=== PATIENT | male | born 1960 | race Caucasian/White ===

== ENCOUNTER 2019-05-21 18:56 | Emergency (ER) | payer OTHER ==
[~2019-05-21] VITALS: Ht 187 cm; Wt 111.0 kg
--- NOTE | 2019-05-21 19:33 | Diagnostic Imaging Report ---
INDICATION: Bilateral hip pain 6 views of the pelvis and bilateral hips were obtained. There are changes of prior bilateral total hip arthroplasties. No loosening is evident on either side. There are changes of prior fixation involving the inferior ramus on the left. There are also changes of prior laminectomy and fusion at L5-S1. There is no fracture, dislocation or other acute abnormality. IMPRESSION: Multiple prior surgeries. No acute abnormality is evident. Dictated by: Dictated on workstation # [id number]
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
[2019-05-21 20:14] VITALS: BP 134/100
== END 2019-05-21 20:15 | disposition home or self-care (01) ==
LOC: ER FS 18:59
DX: F10.129 Alcohol abuse with intoxication, unspecified (principal)
CPT/HCPCS: 73521

== ENCOUNTER 2020-05-28 21:45 | Observation (INO) | payer MEDICARE, OTHER ==
[~2020-05-28] VITALS: Ht 187.9 cm; Wt 116.0 kg
[2020-05-28] MEDS ORDERED: NS IV 1000 ML 1,000 ML IV SCH (22:00)
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
[2020-05-28 22:15] LABS: BASOPHILS # (AUTO) 0.1 10^3/uL (0.0-0.1); BASOPHILS % (AUTO) 1 % (0-10); EOSINOPHILS # (AUTO) 0.6 10^3/uL (0.0-0.3); EOSINOPHILS % (AUTO) 10 % (0-10); HEMATOCRIT 42 % (40-54); HEMOGLOBIN 13.5 g/dL (13.3-17.7); LYMPHOCYTES # (AUTO) 1.2 10^3/uL (1.0-4.0); LYMPHOCYTES % (AUTO) 22 % (12-44); MEAN CORPUSCULAR HEMOGLOBIN 29 pg (25-34); MEAN CORPUSCULAR HGB CONC 32 g/dL (32-36); MEAN CORPUSCULAR VOLUME 90 fL (80-99); MEAN PLATELET VOLUME 9.3 fL (9.0-12.2); MONOCYTES # (AUTO) 0.7 10^3/uL (0.0-1.0); MONOCYTES % (AUTO) 12 % (0-12); NEUTROPHILS % (AUTO) 55 % (42-75); PLATELET COUNT 239 10^3/uL (130-400); WHITE BLOOD COUNT 5.5 10^3/uL (4.3-11.0)
[2020-05-28 22:22] LABS: ALBUMIN 3.8 GM/DL (3.2-4.5); CHLORIDE 103 MMOL/L (98-107); POTASSIUM 4.5 MMOL/L (3.6-5.0); SODIUM 137 MMOL/L (135-145)
[2020-05-28 22:23] LABS: CALCIUM 8.9 MG/DL (8.5-10.1); INR 0.9 (0.8-1.4); PROTHROMBIN TIME PATIENT 12.9 SEC (12.2-14.7)
[2020-05-28 22:24] LABS: TRIGLYCERIDES 362 MG/DL (<150); VLDL CHOLESTEROL 72 MG/DL (5-40)
[2020-05-28 22:25] LABS: GLUCOSE 104 MG/DL (70-105); TOTAL PROTEIN 7.1 GM/DL (6.4-8.2)
[2020-05-28 22:26] LABS: BILIRUBIN,TOTAL 0.4 MG/DL (0.1-1.0); CARBON DIOXIDE 24 MMOL/L (21-32)
[2020-05-28 22:28] LABS: ALKALINE PHOSPHATASE 84 U/L (40-136); GFR ESTIMATED > 60
[2020-05-28 22:29] LABS: CHOLESTEROL 205 MG/DL (< 200)
[2020-05-28 22:30] LABS: BILIRUBIN,DIRECT 0.1 MG/DL (0.0-0.3); BILIRUBIN,INDIRECT 0.3 MG/DL; BUN/CREATININE RATIO 15
[2020-05-28 22:31] LABS: ALANINE AMINOTRANSFERASE 11 U/L (0-55); HDL CHOLESTEROL 34 MG/DL (40-60); MAGNESIUM 2.3 MG/DL (1.6-2.4)
[2020-05-28] MEDS ORDERED: IOHEXOL 350 MG/ML 100 ML (OMNIPAQUE 350) VIAL IV ONE (23:00)
[2020-05-28] MEDS ORDERED: CATHETER FLUSH 10 ML SYR IV PRN (23:00)
[2020-05-28] MEDS ORDERED: NS 100 ML (IVPB) BAG IV ONE (23:00)
[2020-05-28] MEDS ORDERED: HOLD METFORMIN - RECEIVED CONTRAST 20 ML VIAL IV SCH (23:00)
[2020-05-28 23:19] LABS: BASOPHILS # (AUTO) 0.1 10^3/uL (0.0-0.1); BASOPHILS % (AUTO) 1 % (0-10); EOSINOPHILS # (AUTO) 0.6 10^3/uL (0.0-0.3); EOSINOPHILS % (AUTO) 10 % (0-10); HEMATOCRIT 43 % (40-54); HEMOGLOBIN 13.8 g/dL (13.3-17.7); LYMPHOCYTES # (AUTO) 1.2 10^3/uL (1.0-4.0); LYMPHOCYTES % (AUTO) 20 % (12-44); MEAN CORPUSCULAR HEMOGLOBIN 29 pg (25-34); MEAN CORPUSCULAR HGB CONC 32 g/dL (32-36); MEAN CORPUSCULAR VOLUME 90 fL (80-99); MEAN PLATELET VOLUME 9.1 fL (9.0-12.2); MONOCYTES # (AUTO) 0.7 10^3/uL (0.0-1.0); MONOCYTES % (AUTO) 11 % (0-12); NEUTROPHILS # (AUTO) 3.3 10^3/uL (1.8-7.8); NEUTROPHILS % (AUTO) 57 % (42-75); PLATELET COUNT 232 10^3/uL (130-400); WHITE BLOOD COUNT 5.8 10^3/uL (4.3-11.0)
[2020-05-28 23:25] LABS: BILIRUBIN,URINE NEGATIVE (NEGATIVE); CLARITY,URINE CLEAR; COLOR,URINE YELLOW; GLUCOSE, URINE (UA) NEGATIVE (NEGATIVE); KETONES,URINE NEGATIVE (NEGATIVE); LEUKOCYTE ESTERASE ,URINE NEGATIVE (NEGATIVE); NITRITE,URINE NEGATIVE (NEGATIVE); PROTEIN,URINE NEGATIVE (NEGATIVE)
[2020-05-28 23:30] LABS: CHLORIDE 102 MMOL/L (98-107); POTASSIUM 4.5 MMOL/L (3.6-5.0); SODIUM 136 MMOL/L (135-145)
[2020-05-28] MEDS ORDERED: AZITHROMYCIN INJECTION 500 MG in NS (IVPB) 250 ML IV ONE (23:30)
[2020-05-28] MEDS ORDERED: cefTRIAXone FOR IV USE 1,000 MG in WATER (STERILE) FOR INJECTION 10 ML IV ONE (23:30)
[2020-05-28 23:31] LABS: BACTERIA,URINE NEGATIVE /HPF; SQUAMOUS EPITHELIAL CELL,UR RARE /HPF
[2020-05-28 23:31] LABS: ALBUMIN 3.8 GM/DL (3.2-4.5)
[2020-05-28 23:32] LABS: CALCIUM 8.8 MG/DL (8.5-10.1); FIBRIN DEGRADATION PRODUCTS 1.88 UG/ML (0.00-0.49); INR 0.9 (0.8-1.4)
[2020-05-28 23:33] LABS: AMYLASE 105 U/L (25-125); GLUCOSE 95 MG/DL (70-105); TOTAL PROTEIN 6.9 GM/DL (6.4-8.2)
[2020-05-28 23:34] LABS: CARBON DIOXIDE 26 MMOL/L (21-32)
[2020-05-28 23:35] LABS: BILIRUBIN,TOTAL 0.4 MG/DL (0.1-1.0)
[2020-05-28 23:36] LABS: AMPHETAMINE SCREEN, URINE NEGATIVE (NEGATIVE); BARBITURATE SCREEN URINE NEGATIVE (NEGATIVE); BENZODIAZEPINES SCREEN URINE POSITIVE (NEGATIVE); CANNABINOID SCREEN, URINE NEGATIVE (NEGATIVE); COCAINE SCREEN URINE NEGATIVE (NEGATIVE); METHADONE STAT NEGATIVE (NEGATIVE); METHAMPHETAMINE SCREEN URINE S NEGATIVE (NEGATIVE); OPIATE SCREEN URINE NEGATIVE (NEGATIVE); OXYCODONE STAT NEGATIVE (NEGATIVE); PROPOXYPHENE STAT NEGATIVE (NEGATIVE); TRICYCLIC ANTIDEPRESSANTS SCRE POSITIVE (NEGATIVE)
[2020-05-28 23:37] LABS: ALKALINE PHOSPHATASE 85 U/L (40-136); CREATININE SERUM 1.01 MG/DL (0.60-1.30); GFR ESTIMATED > 60
[2020-05-28 23:38] LABS: BUN/CREATININE RATIO 15
[2020-05-28 23:40] LABS: ALANINE AMINOTRANSFERASE 12 U/L (0-55); SALICYLATE < 5.0 MG/DL (5.0-20.0)
[2020-05-28 23:41] LABS: MAGNESIUM 2.3 MG/DL (1.6-2.4)
[2020-05-28 23:42] LABS: CREATINE KINASE 81 U/L (30-200); LIPASE 78 U/L (8-78)
[2020-05-28 23:45] LABS: ACETAMINOPHEN < 10 UG/ML (10-30)
[2020-05-28 23:49] LABS: CREATINE KINASE MB 2.5 NG/ML (<6.6)
[2020-05-29] VITALS (18 sets, daily range): BP systolic 133–181; BP diastolic 83–103
[2020-05-29] MEDS ORDERED: D5 1/2 NS W/KCL 20 MEQ/L 1,000 ML IV ONE (01:32)
[2020-05-29] MEDS ORDERED: ACETAMINOPHEN 500 MG TAB (TYLENOL) PO PRN (02:00)
[2020-05-29] MEDS ORDERED: D5 1/2 NS W/KCL 20 MEQ 1000 ML IV SCH (02:00)
[2020-05-29] MEDS ORDERED: NS IV 1000 ML 1,000 ML ONE (03:16)
[2020-05-29] MEDS ORDERED: RT-ALBUTEROL SULF 2.5 MG/3 ML PRE-MIX VIAL INH PRN (03:30)
[2020-05-29] MEDS ORDERED: BUSP10TA95 PO (04:55)
[2020-05-29] MEDS ORDERED: BUPR1TAB44 SL (04:55)
[2020-05-29] MEDS ORDERED: PARO40TA3 PO (04:55)
[2020-05-29] MEDS ORDERED: ALPR1TAB2 PO (04:55)
[2020-05-29] MEDS ORDERED: GABA300S2 PO (04:55)
[2020-05-29] MEDS ORDERED: DULO60CA59 PO (04:55)
[2020-05-29] MEDS ORDERED: TRZ50T PO (04:55)
[2020-05-29] MEDS ORDERED: QUET100T33 PO (04:55)
[2020-05-29] MEDS ORDERED: CLON0.5T4 PO (04:56)
[2020-05-29] MEDS ORDERED: POTASSIUM CL 10MEQ/50ML IVPB 50 ML IV SCH (06:00)
[2020-05-29] MEDS ORDERED: MAGNESIUM 1 GM/100 ML IVPB 100 ML IV SCH (06:00)
[2020-05-29] MEDS ORDERED: KCL 20 MEQ TAB (K-DUR) PO SCH (06:00)
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
[2020-05-29] MEDS ORDERED: D5 1/2 NS 1000 ML IV SOLUTION 1,000 ML IV SCH ×2 (08:00)
[2020-05-29] MEDS ORDERED: RT-ALBUTEROL SULF 2.5 MG/3 ML PRE-MIX VIAL INH SCH (08:00)
[2020-05-29] MEDS ORDERED: CATHETER FLUSH 10 ML SYR IV PRN (08:15)
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
[2020-05-29] MEDS ORDERED: TMSL.4C PO (14:07)
[2020-05-29] MEDS ORDERED: ALPR1TAB7 PO (14:07)
[2020-05-29] MEDS ORDERED: FINA5TAB6 PO (14:07)
[2020-05-29] MEDS ORDERED: GABA300C PO (14:07)
[2020-05-29] MEDS ORDERED: LISI20TA26 PO (14:07)
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
--- NOTE | 2020-05-29 18:00 | Discharge Inst-Surgical ---
Discharge Inst-Surgical Depart Medication/Instructions New, Converted or Re-Newed RX: Other (None needed for home.) Patient Instructions Follow up Appt: Make appointment with primary care physician Instructions: No lifting greater than 20 pounds. No strenuous activity. May shower in 24 hours, no tub bath or soaking. Use incentive spirometer at home as directed. No Smoking Symptoms to Report: Appetite Changes, Extremity Discoloration, Numbness/Tingling, Swelling Increased, Bleeding Excessive, Eyesight Changes, Pain Increased, Urine Color Change, Constipation(Persistent), Fever over 101 degree F, Pain/Pressure in chest, Urinating Difficulty, Cough Up/Vomit Blood, Heart Beat Irreg/Pounding, Pain/Pressure in jaw, Cramps in feet or legs, Lightheadedness, Pain/Pressure in shoulder, Diarrhea(Persistent), Memory Changes Suddenly, Questions/Concerns, Weight gain consecutive days, Dizziness/Fainting, Nausea/Vomiting, Shortness of Breath, Weight gain over 2 pounds If questions or concerns contact your physician Or seek help at emergency department. Activity Activity as Tolerated: Yes Driving Instructions: No Driving/Refer to Dr. Pritchett Discharge Diet: No Restrictions Diet After 24 Hours: Clear Liquid if Nauseous If Any Problems/Questions/Issu: Contact Your Physician, Go to Emergency Room Skin/Wound Care Infection Signs and Symptoms: Increased Swelling, Temperature Above 101 F Bathing Instructions: BECKY Engle DO May 29, 2020 18:00
[2020-05-29] MEDS ORDERED: WATER (STERILE) FOR INJECTION 10 ML ONE (19:27)
[2020-05-29] MEDS ORDERED: cefTRIAXone 1,000 MG IV (ROCEPHIN) VIAL ONE (19:27)
[2020-05-29] MEDS ORDERED: cefTRIAXone 1,000 MG/SWFI 10 ML IV PUSH IV SCH ×2 (21:00)
[2020-05-29] MEDS ORDERED: AZITHROMYCIN 500 MG/NS 250 ML IVPB IV SCH ×2 (21:00)
== END 2020-05-29 20:12 | disposition home or self-care (01) ==
LOC: EDUNIT# 21:47 → ER 21:49 → ICU 23:50 → 4TH 05-29 15:03 → ICU 05-29 15:03 → UNDODISOB 05-29 20:12
PROVIDERS: ADMIT Surgery; ATTEND Surgery
DX: S22.42XA Multiple fractures of ribs, left side, initial encounter for closed fracture (principal); R41.82 Altered mental status, unspecified; I12.9 Hypertensive chronic kidney disease with stage 1 through stage 4 chronic kidney disease, or unspecified chronic kidney disease; N18.9 Chronic kidney disease, unspecified; G89.29 Other chronic pain; M54.9 Dorsalgia, unspecified; F41.9 Anxiety disorder, unspecified; F32.9 Major depressive disorder, single episode, unspecified; F43.10 Post-traumatic stress disorder, unspecified; Z79.899 Other long term (current) drug therapy; Z20.822 Contact with and (suspected) exposure to COVID-19; V89.2XXA Person injured in unspecified motor-vehicle accident, traffic, initial encounter
CPT/HCPCS: 51702; 70450; 70486; 71045 ×2; 71260; 72125; 72128; 72131; 72170; 74177; 80053; 80061; 80076; 80306; 81000; 82150; 82550; 82553; 83690; 83735; 83874; 84484; 85025; 85379; 85610; 85730; 86850; 86900; 86901; 87081; 93005; 94640; 94664; 96361; 96365; 96375; 99291; G0378 ×2; G0480 ×3; U0002; 36415; 80320; 80329; 87635